=== PATIENT | female | born 1985 | race Two or more races ===

== ENCOUNTER → 2018-03-10 | Emergency (ER) | payer OTHER ==
[~2018-03-10] VITALS: Ht 152.4 cm; Wt 63.5 kg
[~2018-03-10] MED LIST: BACTRIM DS TAB1 EACH PO; CEPHALEXIN500 MG
== END | disposition home or self-care (01) ==
LOC: ER 17:20
DX: N75.8 Other diseases of Bartholin's gland (principal)